=== PATIENT | male | born 1955 | race Caucasian/White ===

== ENCOUNTER 2024-03-09 19:07 | Emergency (ER) | payer OTHER ==
[~2024-03-09] VITALS: Ht 172.7 cm; Wt 100.2 kg
[2024-03-09] MEDS ORDERED: TRAM-626 PO (23:37)
[2024-03-09 23:39] VITALS: BP 126/78; PULSE 67; RESP 18; TEMP 98.6; O2SAT 97
== END 2024-03-10 00:57 | disposition home or self-care (01) ==
LOC: ER 19:07
DX: S43.491A Other sprain of right shoulder joint, initial encounter (principal); S20.211A Contusion of right front wall of thorax, initial encounter; I10 Essential (primary) hypertension; W18.39XA Other fall on same level, initial encounter; Y93.89 Activity, other specified; Y92.89 Other specified places as the place of occurrence of the external cause; Y99.8 Other external cause status
CPT/HCPCS: 71111; 73030

== ENCOUNTER 2024-06-05 11:12 | Emergency (ER) | payer OTHER ==
[~2024-06-05] VITALS: Ht 177.8 cm; Wt 100.0 kg
[~2024-06-05 11:12] MED LIST: TRAM-626 PO
[2024-06-05] MEDS: ONDANSETRON HCL 4 MG/2 ML VIAL IV ONE (12:05)
[2024-06-05] MEDS: ETOMIDATE (2MG/ML) 20ML VIAL IV ONE (12:05)
[2024-06-05] MEDS: MORPHINE SULFATE 4 MG/ML SYR/VIAL IV ONE (12:06)
[2024-06-05 12:17] VITALS: PULSE 65; RESP 17; O2SAT 96
[2024-06-05 12:36] VITALS: BP 138/79; PULSE 68; RESP 14; TEMP 97.1; O2SAT 94
== END 2024-06-05 12:39 | disposition short-term general hospital (02) ==
LOC: ER 11:12 → EDBD 11:12 → ER 12:39
DX: S82.52XA Displaced fracture of medial malleolus of left tibia, initial encounter for closed fracture (principal); I10 Essential (primary) hypertension; E78.5 Hyperlipidemia, unspecified; Z86.73 Personal history of transient ischemic attack (TIA), and cerebral infarction without residual deficits; Z87.891 Personal history of nicotine dependence; Z79.02 Long term (current) use of antithrombotics/antiplatelets; Z79.899 Other long term (current) drug therapy; W18.39XA Other fall on same level, initial encounter; Y93.89 Activity, other specified; Y92.098 Other place in other non-institutional residence as the place of occurrence of the external cause; Y99.8 Other external cause status
CPT/HCPCS: 27762; 73600; 96374; 96375; 99285; J2270; J2405

== ENCOUNTER 2024-07-03 16:26 | Emergency (ER) | payer OTHER ==
[~2024-07-03] VITALS: Ht 172.7 cm; Wt 100.0 kg
[2024-07-03 20:12] LABS: Basophils # (auto) 0 10 ^3/uL (0-0.2); Basophils % (auto) 0.2 % (0.0-2.0); Eosinophils # (auto) 0 10 ^3/uL (0-0.8); Hematocrit 48.1 % (41.0-53.0); Hemoglobin 16.3 g/dL (13.5-17.5); Lymphocytes # (auto) 1.1 10 ^3/uL (0.4-5.4); Lymphocytes % (auto) 8.8 % (10.0-50.0); Mean Corpuscular Hemoglobin 31.8 pg (28.0-32.0); Mean Corpuscular Hgb Conc. 33.8 g/dL (32.0-36.0); Mean Corpuscular Volume 94.1 fL (80.0-100.0); Monocytes # (auto) 0.6 10 ^3/uL (0-1.3); Monocytes % (auto) 4.8 % (0.0-12.0); Neutrophils # (auto) 10.7 10 ^3/uL (1.6-8.6); Neutrophils % (auto) 86.2 % (37.0-80.0); Nucleated Red Blood Cells % 0.2 %; Platelet Count (auto) 317 10^3/uL (140-450); Red Blood Cells 5.11 10^6/uL (4.5-5.90); Red Cell Distribution Width 13.8 % (11.8-14.3); White Blood Cell 12.4 10^3/uL (4.4-10.8)
[2024-07-03 20:27] LABS: Alanine Aminotransferase 40 U/L (7-40); Albumin 4.5 g/dL (3.2-4.8); Alkaline Phosphatase 117 U/L (46-116); Anion Gap 11 (5-15); Aspartate Aminotransferase 31 U/L (13-40); Blood Urea Nitrogen 14 mg/dL (9-23); Calcium 10.4 mg/dL (8.7-10.4); Carbon Dioxide 19 mmol/L (20-31); Chloride 104 mmol/L (98-107); Glucose 145 mg/dL (74-106); Potassium 4.5 mmol/L (3.5-5.1); Sodium 134 mmol/L (136-145)
[2024-07-03 20:28] LABS: Total Protein 7.7 g/dL (5.7-8.2)
[2024-07-03 20:31] LABS: Lactic Acid w/Reflex 2.8 mmol/L (0.4-2.0)
[2024-07-03] MEDS: SODIUM CHLORIDE 0.9% 500 ML IV ONE (20:34)
[2024-07-03 20:38] VITALS: PULSE 68; RESP 18; O2SAT 99
[2024-07-03 20:41] LABS: INR 1.22 (0.9-1.15); Partial Thromboplastin Time 29.4 SEC (24.5-34.5); Prothrombin Time 12.7 sec (9.3-11.8)
[2024-07-03] MEDS: VANCOMYCIN 1GM/200ML PREMIX 200 ML IV ONE (20:59)
[2024-07-04 00:13] VITALS: PULSE 67; RESP 14; O2SAT 98
[2024-07-04] MEDS: fentaNYL CITRATE 100 MCG/2 ML VL IV ONE ×2 (00:32→00:41)
[2024-07-04] MEDS: KETOROLAC TROMETH 30 MG/ML 1ML VIAL IV ONE ×2 (00:32→00:43)
[2024-07-04 04:13] VITALS: BP 104/53; PULSE 72; RESP 14; TEMP 98.9; O2SAT 98
== END 2024-07-03 20:59 | disposition short-term general hospital (02) ==
LOC: ER 16:36
DX: S82.832A Other fracture of upper and lower end of left fibula, initial encounter for closed fracture (principal); L08.9 Local infection of the skin and subcutaneous tissue, unspecified; I10 Essential (primary) hypertension; E78.5 Hyperlipidemia, unspecified; D72.829 Elevated white blood cell count, unspecified; Z86.73 Personal history of transient ischemic attack (TIA), and cerebral infarction without residual deficits; Z87.891 Personal history of nicotine dependence; W18.39XA Other fall on same level, initial encounter; Y93.89 Activity, other specified; Y92.89 Other specified places as the place of occurrence of the external cause; Y99.8 Other external cause status
CPT/HCPCS: 36415; 73700; 80053; 83605; 85025; 85610; 85730; 87040; 96365; 96375; 99285; J3370; J7040

== ENCOUNTER → 2024-10-05 | Outpatient (CLI) | payer OTHER ==
[~2024-10-05] VITALS: Ht 172.7 cm; Wt 74.8 kg
[2024-10-05] MEDS: REGADENOSON 0.4 MG/5 ML SYRG IV ONE ×2 (09:33→10:16)
--- NOTE | 2024-10-09 09:42 | DVHSR ---
APPROVED REPORT Exam: Nuclear Stress Test BMI: 0 Stress Test Details Stress Test: Pharmacologic stress testing performed using 0.4 mg of regadenoson per 5 mL given IV ov er 10 seconds. HR Resting HR: 76 bpmMax Heart Rate (APMHR): 150.052527 bpm Max HR Achieved: 102 bpmTarget HR (85% APMHR): 127.300684 bpm % of APMHR: 68.00 Recovery HR: 84 bpm BP Resting BP: 117/75 mmHg Recovery BP: 102/67 mmHg ECG Resting ECG: Sinus Rhythm Clinical Reason for Termination: Completed protocol Nurse Comments Recieved pt. from [facility]. A/Ox4 on RA. 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 PIV flushes well. Re viewed POC. Pt. verbalized understanding of procedure including risks and side effects, agrees for st ress testing. Lexiscan stress test performed per protocol. [facility] tech administered Cardiolite. Pt. tolerated well . Pt. stable, no change on exam. VS returned to baseline. Transferred to [facility] via wheelchair w/ te ch. Stress ECG Conclusion lvef 66% no major stress induced ischemia noted inferior wall attenuation artifact noted NM EXAM: Myocardial Perfusion REST/STRESS Imaging Protocol: Rest Tc-99m/Stress Tc-99m 1 day Resting Data Rest SPECT myocardial perfusion imaging was performed in supine position 60 minutes following the int ravenous injection of 11.4 mCi of Tc-99m Sestamibi. Time of rest injection: 0846 Time of rest imagin Administration Route: IV Administration Site: Left Arm Pharmacologic Stress Pharmacologic stress test was performed by injecting Regadenoson 0.4 mg IV push followed by the intra venous injection of 30.9 mCi of Tc-99m Sestamibi. Time of stress injection: 1017 Time of stress imagin Administration Route: IV Administration Site: Left Arm Gated Stress SPECT was performed 60 minutes after stress injection. The images were gated to evaluate regional wall motion and calculate left ventricular ejection fracti on. Stress only was performed in the Supine position. Nuclear Conclusion ECG Findings: negative for ischemia Nuclear Findings: negative for ischemia Left Ventricular Function: normal lvef 66% no major stress induced ischemia noted inferior wall attenuation artifact noted
== END | disposition home or self-care (01) ==
LOC: XYW 08:06
PROVIDERS: ATTEND Internal Medicine
DX: Z01.810 Encounter for preprocedural cardiovascular examination (principal)
CPT/HCPCS: 78452; 93017; A9500; J2785